=== PATIENT | female | born 1955 | race Caucasian/White ===

== ENCOUNTER 2020-10-01 14:38 | Emergency (ER) | payer OTHER ==
[2020-10-01 14:58] VITALS: BP 145/79; PULSE 96; TEMP 98; BMI 29.2
[2020-10-01] MEDS ORDERED: ACETAMINOPHEN 325 MG TABLET (FP) PO ONE (16:36)
[2020-10-01] MEDS ORDERED: CLINDAMYCIN HCL 300 MG CAPSULE PO ONE (16:37)
[2020-10-01] MEDS ORDERED: ACETAMINOPHEN 325 MG TABLET (FP) ONE (17:06)
[2020-10-01] MEDS ORDERED: CLINDAMYCIN HCL 150 MG CAPSULE (FP) ONE (17:06)
== END 2020-10-01 17:14 | disposition home or self-care (01) ==
LOC: JER 14:38 → JERFT 14:38
DX: L03.116 Cellulitis of left lower limb (principal)
CPT/HCPCS: 99283-25

== ENCOUNTER 2020-10-03 13:45 | Emergency (ER) | payer OTHER ==
[2020-10-03 13:51] VITALS: BP 155/81; PULSE 86; TEMP 98.5; BMI 29.2
== END 2020-10-03 14:34 | disposition home or self-care (01) ==
LOC: JERFT 13:45
DX: Z48.00 Encounter for change or removal of nonsurgical wound dressing (principal)
CPT/HCPCS: 99281-25

== ENCOUNTER 2024-06-05 11:46 | Emergency (ER) | payer OTHER ==
[2024-06-05 12:08] VITALS: BP 140/76; PULSE 80; RESP 20; TEMP 97.8; BMI 29.2
[2024-06-05] MEDS ORDERED: DIPHTH,PERTUSS(ACELL),TET 0.5 ML DISP.SYRIN IM ONE (12:32)
[2024-06-05] MEDS ORDERED: BACITRACIN ZINC 15 GM TUBE TOPICAL OINTMENT ONE (12:32)
[2024-06-05] MEDS ORDERED: ACETAMINOPHEN 500 MG TABLET (FP) ONE (12:32)
[2024-06-05] MEDS: DIPHTH,PERTUSS(ACELL),TET 0.5 ML DISP.SYRIN IM ONE (12:37)
[2024-06-05] MEDS: BACITRACIN ZINC 15 GM TUBE TOPICAL OINTMENT TP ONE (12:37)
[2024-06-05] MEDS: ACETAMINOPHEN 500 MG TABLET (FP) PO ONE (12:38)
== END 2024-06-05 13:17 | disposition home or self-care (01) ==
LOC: JER 11:46
PROC: 3E0234Z Introduction of Serum, Toxoid and Vaccine into Muscle, Percutaneous Approach (ICD-10-PCS; principal; 2024-06-05)
DX: S80.01XA Contusion of right knee, initial encounter (principal); Z23 Encounter for immunization; W22.8XXA Striking against or struck by other objects, initial encounter
CPT/HCPCS: 73562-TC-RT-FY; 90715; 99284-25

== ENCOUNTER 2024-06-10 10:18 | Observation (INO) | payer MEDICARE, OTHER ==
[2024-06-10 10:48] VITALS: BMI 29.2
[2024-06-10] MEDS ORDERED: ACETAMINOPHEN 325 MG TABLET (FP) ONE (11:41)
[2024-06-10] MEDS: ACETAMINOPHEN 325 MG TABLET (FP) PO ONE (11:55)
[2024-06-10 11:59] LABS: BASO % 0.3 % (0-2.0); EOS % 0.4 % (0-4.5); HEMATOCRIT 40.9 % (32.4-45.2); HEMOGLOBIN 13.4 GM/dL (10.7-15.3); LYMPH % 8.6 % (8-40); MCHC 32.8 g/dl (32.0-36.0); MEAN CELL VOLUME 88.5 fl (80-96); MEAN PLT VOLUME 7.6 fl (7.5-11.1); MONO % 2.5 % (3.8-10.2); NEUT % 88.2 % (42.8-82.8); PLATELET COUNT 247 10^3/uL (134-434); RBC 4.62 M/mm3 (3.60-5.2); RDW 13.9 % (11.6-15.6); WHITE BLOOD COUNT 8.3 K/mm3 (4.0-10.0)
[2024-06-10] MEDS: SODIUM CHLORIDE 0.9% 500 ML INFUS.BAG IV ONE (12:00)
[2024-06-10] MEDS: MINERAL OIL ENEMA 133 ML ENEMA RC ONE (12:00)
[2024-06-10 12:27] LABS: POTASSIUM 3.8 mmol/L (3.5-5.1)
[2024-06-10 12:28] LABS: CALCIUM 9.1 mg/dL (8.5-10.1)
[2024-06-10 12:29] LABS: BLOOD UREA NITROGEN 11.1 mg/dL (7-18); MAGNESIUM 2.1 mg/dL (1.8-2.4)
[2024-06-10 12:32] LABS: CREATININE 0.8 mg/dL (0.55-1.3)
[2024-06-10 12:34] LABS: BILIRUBIN,TOTAL 0.5 mg/dL (0.2-1); TOT PROT 7.5 g/dl (6.4-8.2)
[2024-06-10 14:42] LABS: PH,URINE 7.5 (5.0-8.0); URINE APPEARANCE CLEAR; URINE BILIRUBIN NEGATIVE (NEGATIVE); URINE COLOR YELLOW; URINE GLUCOSE (UA) NEGATIVE (NEGATIVE); URINE KETONE TRACE (NEGATIVE); URINE LEUK ESTERASE NEGATIVE (NEGATIVE); URINE NITRITE NEGATIVE (NEGATIVE); URINE PROTEIN NEGATIVE (NEGATIVE); URINE UROBILINOGEN 0.2 mg/dL (0.2-1.0)
[2024-06-10] MEDS: PEG 3350/NA SULF BICARB CL/KCL 4000 ML SOLN.RECON PO ONE (17:10)
[2024-06-10] MEDS: ATORVASTATIN CA 20 MG TABLET (FP) PO SCH (21:19)
[2024-06-11] MEDS: NEOMYCIN/POLYMYXIN/BACITRACIN (TRIPLE ANTIBIOTIC) 28 GM OINTMENT TP SCH (02:32)
[2024-06-11] MEDS: INSULIN ASPART SLIDING SCALE (NOVOLOG) 1 VIAL SQ SCH ×2 (06:01→17:00)
[2024-06-11 07:59] LABS: HEMATOCRIT 36.8 % (32.4-45.2); HEMOGLOBIN 12.2 GM/dL (10.7-15.3); MCH 29.3 pg (25.7-33.7); MCHC 33.1 g/dl (32.0-36.0); MEAN CELL VOLUME 88.5 fl (80-96); MEAN PLT VOLUME 8.1 fl (7.5-11.1); PLATELET COUNT 230 10^3/uL (134-434); RBC 4.16 M/mm3 (3.60-5.2); RDW 13.7 % (11.6-15.6); WHITE BLOOD COUNT 4.7 K/mm3 (4.0-10.0)
[2024-06-11 08:16] LABS: POTASSIUM 3.8 mmol/L (3.5-5.1)
[2024-06-11 08:17] LABS: INR 1.05 (0.83-1.09); PROTHROMBIN TIME (PATIENT) 11.5 SEC (9.7-13.0)
[2024-06-11 08:19] LABS: BLOOD UREA NITROGEN 9.6 mg/dL (7-18); CALCIUM 8.4 mg/dL (8.5-10.1)
[2024-06-11 08:22] LABS: CREATININE 0.7 mg/dL (0.55-1.3)
[2024-06-11 09:13] LABS: PH,URINE 8.5 (5.0-8.0); URINE APPEARANCE CLEAR; URINE BILIRUBIN NEGATIVE (NEGATIVE); URINE COLOR YELLOW; URINE GLUCOSE (UA) NEGATIVE (NEGATIVE); URINE KETONE NEGATIVE (NEGATIVE); URINE LEUK ESTERASE NEGATIVE (NEGATIVE); URINE NITRITE NEGATIVE (NEGATIVE); URINE PROTEIN NEGATIVE (NEGATIVE); URINE UROBILINOGEN 0.2 mg/dL (0.2-1.0)
[2024-06-11] MEDS: LISINOPRIL 5 MG TABLET PO SCH (10:17)
[2024-06-11] MEDS: ENOXAPARIN NA (PORCINE) 30 MG/0.3 ML DISP.SYRIN SQ SCH (10:17)
[2024-06-11] MEDS: SERTRALINE HCL 25 MG TABLET (FP) PO SCH (10:17)
[2024-06-11] MEDS: ACETAMINOPHEN 325 MG TABLET (FP) PO PRN (16:19)
[2024-06-11] MEDS ORDERED: INSULIN ASPART SLIDING SCALE (NOVOLOG) 1 VIAL SQ SCH (16:30)
[2024-06-12 02:09] VITALS: RESP 18
[2024-06-12] MEDS: POLYETHYLENE GLYCOL (HEALTHYLAX) 3350 17 GM PACKET PO SCH (09:28)
[2024-06-12] MEDS ORDERED: POLYETHYLENE GLYCOL (HEALTHYLAX) 3350 17 GM PACKET PO SCH (10:30)
[2024-06-12] MEDS: POLYETHYLENE GLYCOL (HEALTHYLAX) 3350 17 GM PACKET PO ONE (13:13)
[2024-06-12 13:32] LABS: HEMATOCRIT 39.2 % (32.4-45.2); HEMOGLOBIN 13.4 GM/dL (10.7-15.3); MCH 29.8 pg (25.7-33.7); MCHC 34.1 g/dl (32.0-36.0); MEAN CELL VOLUME 87.5 fl (80-96); MEAN PLT VOLUME 8.2 fl (7.5-11.1); PLATELET COUNT 264 10^3/uL (134-434); RBC 4.48 M/mm3 (3.60-5.2); RDW 13.6 % (11.6-15.6); WHITE BLOOD COUNT 7.8 K/mm3 (4.0-10.0)
[2024-06-12 13:41] VITALS: BP 106/61; PULSE 88; TEMP 98.6
[2024-06-12 13:48] LABS: POTASSIUM 3.5 mmol/L (3.5-5.1)
[2024-06-12 13:53] LABS: ALBUMIN 3.9 g/dl (3.4-5.0)
[2024-06-12 13:55] LABS: BLOOD UREA NITROGEN 12.1 mg/dL (7-18)
[2024-06-12 13:57] LABS: CALCIUM 8.8 mg/dL (8.5-10.1); MAGNESIUM 2.2 mg/dL (1.8-2.4)
[2024-06-12 13:59] LABS: CREATININE 0.8 mg/dL (0.55-1.3)
[2024-06-12 14:01] LABS: BILIRUBIN,TOTAL 0.6 mg/dL (0.2-1); TOT PROT 7.3 g/dl (6.4-8.2)
[2024-06-12] MEDS: POTASSIUM CHLORIDE ORAL LIQUID 20 MEQ/15 ML PO ONE (14:46)
== END 2024-06-12 15:47 | disposition home or self-care (01) ==
LOC: JER 10:18 → JERBED 16:53 → J7W 18:46
PROVIDERS: ADMIT Internal Medicine; ATTEND Physician Assistant
PROC: 3E0337Z Introduction of Electrolytic and Water Balance Substance into Peripheral Vein, Percutaneous Approach (ICD-10-PCS; principal; 2024-06-10)
DX: K56.49 Other impaction of intestine (principal); I10 Essential (primary) hypertension; E78.5 Hyperlipidemia, unspecified; E11.9 Type 2 diabetes mellitus without complications; F32.A Depression, unspecified; M19.90 Unspecified osteoarthritis, unspecified site; Z72.0 Tobacco use; R55 Syncope and collapse; Z88.0 Allergy status to penicillin
CPT/HCPCS: 36415; 71045-TC-FY; 74018-TC-FY; 74177-TC; 80048; 80053; 81003; 82962; 83735; 84439; 84443; 84480; 84484; 85025; 85027; 85610; 87086; 93005; 93010; 99285-25; G0378; Q9967